=== PATIENT | female | born 2000 | race Hispanic/Latino ===

== ENCOUNTER 2024-05-23 19:18 | Emergency (ER) | payer OTHER ==
[~2024-05-23] VITALS: Ht 157.5 cm; Wt 61.2 kg
[2024-05-23] MEDS ORDERED: MUPI22O TP (20:57)
[2024-05-23] MEDS ORDERED: CLIN-141 PO (20:57)
[2024-05-23 21:35] VITALS: BP 114/68; PULSE 62; RESP 16; O2SAT 100
[2024-05-23] MEDS: CLINDAMYCIN 150 MG CAP PO ONE (21:36)
[2024-05-23] MEDS: ACETAMINOPHEN 500 MG TABLET PO ONE (21:36)
[2024-05-23] MEDS: TETANUS/DIPHTHERIA TOXOID [ADULT] 0.5 ML VIAL IM ONE (21:40)
== END 2024-05-23 21:59 | disposition home or self-care (01) ==
LOC: EDH 19:18
DX: S70.312A Abrasion, left thigh, initial encounter (principal); W55.03XA Scratched by cat, initial encounter; Y93.89 Activity, other specified; Y92.89 Other specified places as the place of occurrence of the external cause; Y99.8 Other external cause status
CPT/HCPCS: 90471; 90714